=== PATIENT | female | born 1955 | race African-American/Black ===

== ENCOUNTER 2017-03-07 02:21 | Inpatient (IN) ==
[2017-03-02 15:05] LABS: URINE MICRO REVIEW NEEDED? NO; URINE SOURCE CLEAN CATCH
[2017-03-02 15:05] LABS: MANUAL DIFF NEEDED? NO
[2017-03-02 15:13] LABS: BASO% 0.2 % (0.0-0.8); EOS# 0.18 X1000 (0.0-0.7); EOS% 1.7 % (0.0-10.0); HEMATOCRIT 43.2 % (37.0-47.0); HEMOGLOBIN 15.3 g/dL (12.0-16.0); IMM GRAN# 0.02 X1000 (0.0-0.04); IMM GRAN% 0.2 % (0.0-0.5); LYMPH# 2.67 X1000 (1.2-3.4); LYMPH% 25.1 % (20.5-51.1); MCH 27.7 PG (27-31); MCHC 35.4 g/dL (33-37); MCV 78.1 FL (81-99); MONO# 0.49 X1000 (0.11-0.59); MONO% 4.6 % (1.7-9.3); MPV 11.6 FL (7.4-10.4); NEUT% 68.2 % (42.2-75.2); PLT 306 X1000 (130-400); RBC 5.53 XMIL (4.2-5.4)
[2017-03-02 15:23] LABS: BILIRUBIN URINE NEGATIVE (NEGATIVE); BLOOD URINE NEGATIVE (NEGATIVE); COLOR YELLOW; GLUCOSE URINE NEGATIVE (NEGATIVE); LEUKOCYTES URINE LARGE (NEGATIVE); NITRITE URINE NEGATIVE (NEGATIVE); PH URINE 6.5; PROTEIN URINE NEGATIVE (NEGATIVE); SP GRAVITY URINE 1.018; TURBIDITY URINE CLEAR (CLEAR); UROBILINOGEN URINE NORMAL (NORMAL)
[2017-03-02 15:25] LABS: UR EPITHELIAL CELLS <10 /HPF (<10); URINE BACTERIA 1+ /HPF; URINE RBC <10 /HPF (<10)
[2017-03-02 15:27] LABS: INR 1.01; PROTIME 10.6 Seconds (9.2-11.7)
[2017-03-02 15:37] LABS: AGAP 12; BUN 12 mg/dL (8-22); CALCIUM 9.3 mg/dL (8.8-10.2); CHLORIDE 104 mmol/L (98-107); COSMO 286; POTASSIUM 3.7 mmol/L (3.5-5.1); SODIUM 144 mmol/L (136-145); TCO2 28 mmol/L (25-35)
--- NOTE | 2017-03-02 15:58 | EKG Report ---
Test Performed on : 03/02/2017 2:41:48 PM Test Reason : PAT Blood Pressure : / mmHG Vent. Rate : 061 BPM Atrial Rate : 061 BPM P-R Int : 164 ms QRS Dur : 088 ms QT Int : 460 ms P-R-T Axes : 056 -07 017 degrees QTc Int : 463 ms Normal sinus rhythm. Possible Left atrial enlargement Left ventricular hypertrophy Abnormal ECG When compared with ECG of 22-JUL-2014 09:54, No significant change was found Confirmed by Osman Hannah MD ([id number]) on 03/02/2017 4:18:47 PM
[2017-03-07] MEDS ORDERED: COLACE ONE (09:57)
[2017-03-07] MEDS ORDERED: PEPCID ONE (09:57)
[2017-03-07] MEDS ORDERED: KEFZOL 2 GM/D5W 2 GM/50 ML IVPB ONE (09:58)
[2017-03-07] MEDS ORDERED: CELEBREX ONE (09:58)
[2017-03-07] MEDS ORDERED: REGLAN ONE (09:58)
[2017-03-07] MEDS ORDERED: LYRICA ONE (09:58)
[2017-03-07] MEDS ORDERED: LR 1,000 ML ONE (09:58)
[2017-03-07] MEDS ORDERED: MARCAINE 0.25% PF/EPI 1:200,000 ONE (12:55)
[2017-03-07] MEDS ORDERED: SODIUM CHLORIDE 0.9% ONE (12:55)
[2017-03-07] MEDS ORDERED: TORADOL ONE (12:55)
[2017-03-07] MEDS ORDERED: EXPAREL 1.3% ONE (12:56)
[2017-03-07] MEDS ORDERED: NEOSPORIN G.U. IRRIGANT ONE (12:56)
[2017-03-07 14:11] LABS: URINE MICRO REVIEW NEEDED? NO; URINE SOURCE CATH
[2017-03-07 14:14] LABS: UR EPITHELIAL CELLS <10 /HPF (<10); URINE BACTERIA NEGATIVE /HPF; URINE RBC <10 /HPF (<10); URINE WBC <10 /HPF (<10)
[2017-03-07] MEDS ORDERED: NS 1,000 ML ONE (15:46)
[2017-03-07] MEDS ORDERED: DIPRIVAN 1% ONE (16:14)
[2017-03-07] MEDS ORDERED: FENTANYL ONE (16:14)
[2017-03-07 16:18] LABS: BILIRUBIN URINE NEGATIVE (NEGATIVE); BLOOD URINE NEGATIVE (NEGATIVE); COLOR YELLOW; GLUCOSE URINE NEGATIVE (NEGATIVE); LEUKOCYTES URINE NEGATIVE (NEGATIVE); NITRITE URINE NEGATIVE (NEGATIVE); PROTEIN URINE NEGATIVE (NEGATIVE); TURBIDITY URINE CLEAR (CLEAR); UROBILINOGEN URINE NORMAL (NORMAL)
[2017-03-07] MEDS: DILAUDID ONE ×2 (16:22→16:32)
[2017-03-07] MEDS ORDERED: XYLOCAINE 2% JELLY ONE (16:48)
[2017-03-07] MEDS ORDERED: ZOFRAN ONE (16:48)
[2017-03-07] MEDS ORDERED: ROBINUL ONE (16:49)
[2017-03-07] MEDS ORDERED: QUELICIN (DOSE) ONE (16:49)
[2017-03-07] MEDS ORDERED: EPHEDRINE ONE (16:49)
[2017-03-07] MEDS ORDERED: LR 2,000 ML ONE (16:49)
[2017-03-07] MEDS ORDERED: XYLOCAINE-MPF 2% ONE (16:49)
[2017-03-07] MEDS ORDERED: DECADRON ONE (16:50)
--- NOTE | 2017-03-07 17:13 | OPERATIVE NOTE ---
PROCEDURE DATE: 03/07/2017 PREOPERATIVE DIAGNOSIS: Right hip degenerative joint disease. POSTOPERATIVE DIAGNOSIS: Right hip degenerative joint disease. PROCEDURE PERFORMED: Right total hip arthroplasty using a [facility] size 7 femoral stem with a 50 mm hemispherical shell, a 32 mm inside diameter acetabular liner and a 32 mm, -4 mm Biolox Delta ceramic femoral head. ANESTHESIA: General. SURGEON: Ru Stringer MD CHLORINATOR OPERATOR: ANTONINO Pablo SECOND CHLORINATOR OPERATOR: Rosa Wren PA-C COMPLICATIONS: None. BLOOD LOSS: Minimal. DRAINS: Hemovac x1. DESCRIPTION OF PROCEDURE: The patient was brought to the operative suite and placed in supine position. After successful administration of general anesthesia, the patient was placed on the OSI table in the usual position for right hip. The right hip was then prepped and draped in usual sterile fashion. A longitudinal incision was made beginning 2 cm distal and 2 cm lateral to the anterior superior iliac spine, extending distally and slightly laterally 8 cm. It was dissected sharply through skin and subcutaneous tissue, down to the tensor fascia. The tensor fascia was incised and dissected bluntly down to the deep tensor fascia. The deep tensor fascia was incised. The circumflex vessels were electrocauterized. A T-capsulotomy was performed, exposing the femoral neck. The femoral neck cut was made with oscillating saw. The femoral head was removed with the power corkscrew. The labrum was resected sharply the acetabulum was serially reamed to a 50 mm cup. A 50 mm cup was then driven into place in the proper amount of inclination and anteversion. Once this was verified to be in good position, it was stable. The acetabular liner was locked onto the cup. Attention was then directed to the femur. It was externally rotated, extended, adducted, and elevated out of the wound with the hook on the OSI bed. The lateral neck was rongeured. The canal was serially broached to a size 7. A size 7 high offset, -4 was trialed, found to be excellent leg length, offset, and fit and fill of the stem. The trial was removed definitive stem was seated on the femur and then the ceramic head was seated on the Brown taper and the hip was reduced. It was again found to be in excellent position. The anterior capsule was repaired with 2-0 FiberWire the hip was copiously infiltrated with Exparel, including the posterior capsule, anterior capsule, intramuscular, subcutaneous tissue. A drain was placed deep to the tensor fascia and buried around the stem neck exiting distally and laterally. Then the tensor fascia was closed with 0 Vicryl. Skin edge approximated with 2-0 Vicryl. Skin was closed with Monocryl and Prineo. A sterile dressing was applied on the drain. The patient tolerated the procedure without complication. At the end of the procedure, all counts correct. The patient was transferred to the recovery room in stable condition. cc: Ru Stringer MD
[2017-03-07] MEDS ORDERED: MORPHINE IV PRN (18:00)
[2017-03-07] MEDS ORDERED: ZOFRAN IV PRN (18:00)
[2017-03-07] MEDS ORDERED: MILK OF MAGNESIA PO PRN (18:00)
[2017-03-07] MEDS ORDERED: AMBIEN PO PRN (18:00)
[2017-03-07] MEDS: NS 1,000 ML IV SCH (19:40)
[2017-03-07] MEDS: COLACE PO SCH ×2 (19:42→23:41)
[2017-03-07] MEDS: TYLENOL PO SCH (19:43)
[2017-03-07] MEDS: LYRICA PO SCH ×2 (19:43→23:41)
[2017-03-07] MEDS: OXY IR PO PRN (19:43)
[2017-03-07] MEDS: CELEBREX PO SCH ×2 (19:45→23:39)
[2017-03-07] MEDS: KEFZOL 2 GM/D5W 2 GM/50 ML IVPB IV SCH ×2 (19:46→23:39)
[2017-03-07] MEDS: PERIDEX MT SCH ×2 (19:46→23:41)
[2017-03-07] MEDS ORDERED: SULINDAC 200 MG PO SCH (21:00)
[2017-03-07] MEDS: ULTRAM PO SCH (23:38)
[2017-03-08] MEDS: TYLENOL PO SCH ×3 (01:53→14:10)
[2017-03-08] MEDS: ULTRAM PO SCH ×3 (01:53→14:09)
[2017-03-08] MEDS: KEFZOL 2 GM/D5W 2 GM/50 ML IVPB IV SCH (05:53)
[2017-03-08] MEDS: OXY IR PO PRN ×2 (05:54→10:21)
[2017-03-08] MEDS: NS 1,000 ML IV SCH ×2 (05:54→07:29)
[2017-03-08] MEDS ORDERED: XARELTO PO SCH (06:00)
[2017-03-08 06:09] LABS: HEMATOCRIT 34.3 % (37.0-47.0)
[2017-03-08 06:25] LABS: AGAP 12; BUN 15 mg/dL (8-22); CALCIUM 8.4 mg/dL (8.8-10.2); CHLORIDE 102 mmol/L (98-107); COSMO 272; POTASSIUM 4.8 mmol/L (3.5-5.1); SODIUM 135 mmol/L (136-145); TCO2 21 mmol/L (25-35)
[2017-03-08] MEDS: PERIDEX MT SCH (08:37)
[2017-03-08] MEDS: COLACE PO SCH (08:37)
[2017-03-08] MEDS: LYRICA PO SCH (08:37)
[2017-03-08] MEDS: CELEBREX PO SCH (08:37)
[2017-03-08] MEDS: ZIAC 5/6.25 MG PO SCH ×2 (08:38→08:43)
[2017-03-08] MEDS ORDERED: PEPCID PO SCH (09:00)
[2017-03-08] MEDS ORDERED: DECADRON IV ONE (09:00)
[2017-03-08 12:18] VITALS: BP 97/58
--- NOTE | 2017-03-08 20:22 | DISCHARGE SUMMARY ---
ADMISSION DATE: 03/07/2017 DISCHARGE DATE: 03/08/2017 DISCHARGE DIAGNOSIS: Right hip degenerative joint disease status post right total hip arthroplasty. DISCHARGE MEDICATIONS: See discharge medication list. DISPOSITION: The patient is discharged home with home health. DISCHARGE INSTRUCTIONS: Return to see Dr. Stringer next . HOSPITAL COURSE: On the day of admission, patient underwent a right total hip arthroplasty. Her postoperative course was unremarkable. At discharge, she is afebrile, tolerating a regular diet. Ambulating well with physical therapy. Today she walked 150 feet. Her hemoglobin is 12.0 and her hematocrit is 34.3, she had 200 mL of output from her Hemovac. Her wound is clean, dry, intact without sign of infection. She is discharged home with home health in stable condition with instructions to follow up as described above. Dictated by ANTONINO Doty for Ru Stringer MD cc: ANTONINO Doty MD
== END 2017-03-08 14:34 | disposition home health service (06) ==
LOC: SURHOLD 02:21 → 4N 16:51
PROVIDERS: ADMIT Orthopaedic Surgery; ATTEND Orthopaedic Surgery